=== PATIENT | female | born 1965 | race African-American/Black ===

== ENCOUNTER 2019-03-27 17:49 | Emergency (ER) | payer MEDICAID ==
[~2019-03-27] VITALS: Ht 162.6 cm; Wt 73.0 kg
[~2019-03-27 17:49] MED LIST: ASPI-1393 PO; ERGO400C PO; FOLI20CA PO
[2019-03-27] MEDS ORDERED: IPRATROPIUM BROMIDE (0.02%) 0.5MG/2.5ML NEB HHN STA (23:07)
[2019-03-27] MEDS ORDERED: ALBUTEROL (0.083%) 2.5MG/3ML NEB HHN STA (23:07)
[2019-03-27] MEDS ORDERED: PREDNISONE 20MG TABLET PO STA (23:07)
[2019-03-28 00:55] VITALS: BP 137/63
== END 2019-03-28 00:58 | disposition home or self-care (01) ==
LOC: ER 17:49
DX: J45.901 Unspecified asthma with (acute) exacerbation (principal)
CPT/HCPCS: 94640; 99283; J7512; J7611; Z7610

== ENCOUNTER 2019-06-30 19:00 | Emergency (ER) | payer MEDICAID, MEDICARE ==
[~2019-06-30] VITALS: Ht 162.6 cm; Wt 69.0 kg
[~2019-06-30 19:00] MED LIST changes: -ASPI-1393 PO; +ASPI-1497 PO
[2019-06-30 23:28] LABS: BASOPHILS % 0.9 % (0.0-2.0); EOSINOPHILS % 0.4 % (0.0-5.0); HEMATOCRIT. 39.9 % (36.0-48.0); HEMOGLOBIN. 12.9 g/dL (12.0-16.0); LYMPHOCYTES % 38.6 % (20.0-50.0); MEAN CORPUSCULAR HEMOGLOBIN 24.4 pg (28.0-32.0); MEAN CORPUSCULAR VOLUME 75.5 fL (81.0-99.0); MEAN PLATELET VOLUME 9.2 fl (7.4-10.4); NEUTROPHILS % 57.1 % (40.0-76.0); PLATELET 221 x1000/uL (130-400); RED BLOOD CELL COUNT 5.29 mill/uL (4.2-5.4); RED CELL DISTRIBUTION WIDTH 19.7 % (11.6-14.6)
[2019-06-30 23:32] LABS: CHLORIDE 105 mEq/L (98-107)
[2019-06-30 23:36] LABS: ETHANOL BLOOD < 10 mg/dL
[2019-06-30 23:37] LABS: INR 1.2; PARTIAL THROMBOPLASTIN TIME 24.7 sec (23.4-31.0); PROTHROMBIN TIME 12.8 sec (9.6-11.0)
[2019-06-30 23:40] LABS: LDL CHOLESTEROL 138 mg/dL (5-100)
[2019-07-01] MEDS ORDERED: ASPIRIN 325MG EC TABLET PO ONE (02:30)
[2019-07-01] MEDS ORDERED: LORAZEPAM 2MG/ML CPJ IV PRN (12:30)
[2019-07-01] MEDS ORDERED: ONDANSETRON HCL 4MG/2ML INJ IV PRN (12:30)
[2019-07-01] MEDS ORDERED: HYDROCODONE/ACETAMINOPHEN 10/325MG TABLET PO PRN (12:30)
[2019-07-01] MEDS ORDERED: ACETAMINOPHEN 325MG TABLET PO PRN (12:30)
[2019-07-01] MEDS ORDERED: MAGNESIUM/ALUMINUM HYDROXIDE/SIMETHICONE 30ML UDC PO PRN (12:30)
[2019-07-01] MEDS ORDERED: DOCUSATE SODIUM 100MG CAPSULE PO PRN (12:30)
[2019-07-01] MEDS ORDERED: MORPHINE SULFATE 2 MG/ML CPJ (NOT FOR IM USE) IV PRN (12:30)
[2019-07-01] MEDS ORDERED: POTASSIUM CHLORIDE 20MEQ TABLET SR PO ONE (12:30)
[2019-07-01] MEDS ORDERED: CLONIDINE 0.1MG TABLET PO PRN (12:30)
[2019-07-01] MEDS ORDERED: GUAIFENESIN 200MG/10ML SUGAR FREE UDC PO PRN (12:30)
[2019-07-01] MEDS ORDERED: IPRATROPIUM/ALBUTEROL 0.5-3(2.5)MG/3ML NEB HHN PRN (12:30)
[2019-07-01] MEDS ORDERED: HYDRALAZINE 20MG/ML VIAL IV PRN (12:30)
[2019-07-01] MEDS ORDERED: ENOXAPARIN 40MG/0.4ML SYR SUBCUT SCH (12:30)
[2019-07-01] MEDS ORDERED: DIPHENHYDRAMINE 50MG/ML VIAL IV PRN (12:30)
[2019-07-01] MEDS ORDERED: SODIUM CHLORIDE 0.9% INJ 3ML FLUSH IVF SCH (14:00)
[2019-07-01 14:26] LABS: CREATINE KINASE 49 IU/L (26-192)
[2019-07-01 14:27] LABS: CREATINE KINASE MB FRACTION < 1.0 ng/mL (0.5-3.6)
[2019-07-01 18:15] VITALS: BP 140/79
== END 2019-07-01 18:15 | disposition left against medical advice (07) ==
LOC: ER 19:00 → EDBEDREQDT 07-01 02:26 → EDBEDREQTM 07-01 02:26 → EDBEDREQSVC 07-01 02:26 → EDBEDREQ 07-01 02:26 → ER 07-01 18:15 → CANBEDREQ 07-01 18:30
DX: G45.9 Transient cerebral ischemic attack, unspecified (principal); R05 Cough; M54.9 Dorsalgia, unspecified; R60.0 Localized edema; R01.1 Cardiac murmur, unspecified; I10 Essential (primary) hypertension; E78.00 Pure hypercholesterolemia, unspecified; J45.909 Unspecified asthma, uncomplicated; Z86.73 Personal history of transient ischemic attack (TIA), and cerebral infarction without residual deficits; Z79.01 Long term (current) use of anticoagulants; Z79.82 Long term (current) use of aspirin; Z79.899 Other long term (current) drug therapy
CPT/HCPCS: 36415; 70450; 71045; 80053; 80320; 82550; 82553; 83690; 83721; 83880; 84484; 85025; 85610; 85730; 93005; 93970; 94640; 99285; J7610; Z7610; G0480